=== PATIENT | female | born 1970 | race Caucasian/White ===

== ENCOUNTER 2016-10-22 14:03 | Day surgery (SDC) | payer OTHER ==
[~2016-10-22] VITALS: Ht 159.4 cm; Wt 68.0 kg
[~2016-10-22 14:03] MED LIST: ARTHROTEC 501 TABLET PO; CHLORZOXAZONE500 MG PO; CIPRO500 MG PO; CLONIDINE HCL0.1 MG PO; DILAUDID2 MG PO; FIORICET,ESG1 TABLET PO; GABAPENTIN300 MG PO; IBUPROFEN800 MG PO; KETOROLAC TROME10 MG PO; MAXALT MLT10 MG PO; METOLAZONE10 MG PO; REGLAN10 MG PO; TORADOL10 MG PO; TRAZODONE HCL50 MG PO; ZOFRAN4 MG PO
== END 2016-10-22 15:45 | disposition home or self-care (01) ==
LOC: PAIN 14:03 → SDC 14:30 → PAIN 14:30
PROC: 3E0S33Z Introduction of Anti-inflammatory into Epidural Space, Percutaneous Approach (ICD-10-PCS; principal; 2016-10-22)
DX: M54.16 Radiculopathy, lumbar region (principal); F41.9 Anxiety disorder, unspecified; M51.26 Other intervertebral disc displacement, lumbar region
CPT/HCPCS: J1100; J2250; J3010

== ENCOUNTER → 2017-02-22 | Outpatient (CLI) | payer OTHER ==
[~2017-02-22] MED LIST changes: +OMEPRAZOLE40 M1 PO; +ZESTRIL10 MG PO; +ZOFRAN8 MG PO
== END | disposition home or self-care (01) ==
LOC: NUC 06:50
DX: R10.10 Upper abdominal pain, unspecified (principal)
CPT/HCPCS: 78227; A9537; J2805

== ENCOUNTER 2017-03-01 11:25 | Day surgery (SDC) | payer OTHER ==
[~2017-03-01] VITALS: Ht 157.5 cm; Wt 68.9 kg
[2017-03-01 12:15] VITALS: BP 125/75
[2017-03-01 12:32] VITALS: BP 125/75
[2017-03-01 15:17] LABS: INTERNAL CONTROL VALID? YES
[2017-03-01 16:20] VITALS: BP 141/67
[2017-03-01 17:40] VITALS: BP 121/64
== END 2017-03-01 17:50 | disposition home or self-care (01) ==
LOC: SDC 11:25
PROVIDERS: Urology
DX: N20.2 Calculus of kidney with calculus of ureter (principal); Z87.442 Personal history of urinary calculi; Z87.440 Personal history of urinary (tract) infections; Z86.19 Personal history of other infectious and parasitic diseases; Z84.1 Family history of disorders of kidney and ureter; Z80.1 Family history of malignant neoplasm of trachea, bronchus and lung; Z80.3 Family history of malignant neoplasm of breast
CPT/HCPCS: 74000; 76000; 84703; 93005; C1876; C1894; J0690; J1100; J1170; J1580; J1885; J2175; J2250; J2405; J2765; J3010; Q0175